=== PATIENT | female | born 1955 | race African-American/Black ===

== ENCOUNTER 2020-05-11 08:49 | Emergency (ER) | payer MEDICARE ==
[~2020-05-11] VITALS: Ht 167.6 cm; Wt 80.0 kg
--- NOTE | 2020-05-11 09:11 | ED.ADGEN ---
General Adult EDM: Chief Complaint: RIB PAIN HPI: HPI: Patient is a 65 year old female coming in for pain on her right ribs. Patient states is worse with movement and palpation, not able to lay on her right side. Fall happened a week ago she fell into an antique trunk and hit the corner on her ribs. Denies any head injury loss consciousness. Denies any changes in urination or blood in her urine. Patient has been taking [id number] medications for pain. Does not have a primary care provider and denies any known medical history. Denies any recent illness, cough fevers, vomiting, diarrhea. Review of Systems: Review of Systems: Negative except for HPI Current Medications: Current Medications Medications (Trade) Dose Ordered Sig/Sera Start Time Stop Time Status Last Admin Dose Admin Fentanyl Citrate (Fentanyl 2ml Vial) 75 mcg 1X ONCE 05/11/20 09:30 05/11/20 09:31 DC 05/11/20 10:06 75 MCG Info (CONTRAST GIVEN -- Rx MONITORING) 1 each PRN DAILY PRN 05/11/20 10:30 05/13/20 10:29 Iohexol (Omnipaque 300 Mg/ml) 75 ml 1X ONCE 05/11/20 10:45 05/11/20 10:46 DC 05/11/20 10:44 75 ML Rivaroxaban (Xarelto) 15 mg 1X STAT 05/11/20 12:29 05/11/20 12:33 DC 05/11/20 12:48 15 MG Allergies: Allergies: Allergies Coded Allergies Type Severity Reaction Last Updated Verified Penicillins Allergy Intermediate 05/11/20 Yes Sulfa (Sulfonamide Antibiotics) Allergy Intermediate 05/11/20 Yes Physical Exam: PE: Constitutional: Well developed, well nourished, no acute distress, non-toxic appearance. [] HENT: Normocephalic, atraumatic, bilateral external ears normal, oropharynx moist, no oral exudates, nose normal. [] Eyes: PERRLA, EOMI, conjunctiva normal, no discharge. [] Neck: Normal range of motion, no tenderness, supple, no stridor. [] Cardiovascular:Heart rate regular rhythm, no murmur [] right lateral chest tenderness, no deformities or crepitus Lungs & Thorax: Bilateral breath sounds clear to auscultation [] Abdomen: Bowel sounds normal, soft, no tenderness, no masses, no pulsatile masses. [] Skin: Warm, dry, no erythema, no rash. [] Back: No tenderness, no CVA tenderness. [] Extremities: No tenderness, no cyanosis, no clubbing, ROM intact, no edema. [] Neurologic: Alert and oriented X 3, normal motor function, normal sensory function, no focal deficits noted. [] Psychologic: Affect normal, judgement normal, mood normal. [] Current Patient Data: Labs: Laboratory Tests Test 05/11/20 09:54 05/11/20 10:00 White Blood Count 3.4 x10^3/uL (4.0-11.0) L Red Blood Count 4.22 x10^6/uL (3.50-5.40) Hemoglobin 10.9 g/dL (12.0-15.5) L Hematocrit 32.4 % (36.0-47.0) L Mean Corpuscular Volume 77 fL (79-100) L Mean Corpuscular Hemoglobin 26 pg (25-35) Mean Corpuscular Hemoglobin Concent 34 g/dL (31-37) Red Cell Distribution Width 17.9 % (11.5-14.5) H Platelet Count 333 x10^3/uL (140-400) Neutrophils (%) (Auto) 57 % (31-73) Lymphocytes (%) (Auto) 26 % (24-48) Monocytes (%) (Auto) 13 % (0-9) H Eosinophils (%) (Auto) 2 % (0-3) Basophils (%) (Auto) 1 % (0-3) Neutrophils # (Auto) 2.0 x10^3/uL (1.8-7.7) Lymphocytes # (Auto) 0.9 x10^3/uL (1.0-4.8) L Monocytes # (Auto) 0.5 x10^3/uL (0.0-1.1) Eosinophils # (Auto) 0.1 x10^3/uL (0.0-0.7) Basophils # (Auto) 0.0 x10^3/uL (0.0-0.2) Sodium Level 137 mmol/L (136-145) Potassium Level 4.0 mmol/L (3.5-5.1) Chloride Level 103 mmol/L (98-107) Carbon Dioxide Level 25 mmol/L (21-32) Anion Gap 9 (6-14) Blood Urea Nitrogen 8 mg/dL (7-20) Creatinine 1.1 mg/dL (0.6-1.0) H Estimated GFR (Cockcroft-Gault) 59.9 BUN/Creatinine Ratio 7 (6-20) Glucose Level 91 mg/dL (70-99) Calcium Level 9.6 mg/dL (8.5-10.1) Total Bilirubin 0.2 mg/dL (0.2-1.0) Aspartate Amino Transferase (AST) 15 U/L (15-37) Alanine Aminotransferase (ALT) 12 U/L (14-59) L Alkaline Phosphatase 102 U/L (46-116) Total Protein 7.2 g/dL (6.4-8.2) Albumin 3.2 g/dL (3.4-5.0) L Albumin/Globulin Ratio 0.8 (1.0-1.7) L Urine Collection Type Unknown Urine Color Yellow Urine Clarity Clear Urine pH 5.0 (<5.0-8.0) Urine Specific [place] 1.015 (1.000-1.030) Urine Protein Negative mg/dL (NEG-TRACE) Urine Glucose (UA) Negative mg/dL (NEG) Urine Ketones (Stick) Negative mg/dL (NEG) Urine Blood Negative (NEG) Urine Nitrite Negative (NEG) Urine Bilirubin Negative (NEG) Urine Urobilinogen Dipstick 0.2 mg/dL (0.2 mg/dL) Urine Leukocyte Esterase Negative (NEG) Urine RBC 0 /HPF (0-2) Urine WBC 0 /HPF (0-4) Urine Squamous Epithelial Cells Few /LPF Urine Bacteria 0 /HPF (0-FEW) Urine Mucus Slight /LPF Laboratory Tests 05/11/20 09:54 Laboratory Tests 05/11/20 09:54 Vital Signs: Vital Signs Date Time Temp Pulse Resp B/P (MAP) Pulse Ox O2 Delivery O2 Flow Rate FiO2 05/11/20 12:35 60 16 98 05/11/20 10:06 Room Air 05/11/20 09:00 98.7 138/76 (96) 98.7 EKG: EKG: [] Heart Score: Risk Factors: Risk Factors: DM, Current or recent (<one month) smoker, HTN, HLP, family history of CAD, obesity. Risk Scores: Score 0 - 3: 2.5% MACE over next 6 weeks - Discharge Home Score 4 - 6: 20.3% MACE over next 6 weeks - Admit for Clinical Observation Score 7 - 10: 72.7% MACE over next 6 weeks - Early Invasive Strategies Radiology/Procedures: Radiology/Procedures: CT chest abdomen and pelvis with contrast: History: Pain after fall Axial helical images of the chest abdomen and pelvis were obtained after the administration of 75 cc IV Omni 300 contrast. The patient vomited during the examination resulting in motion artifact Comparison: none CT OF THE CHEST WITH IV CONTRAST: There is thrombus in the right lower lobe pulmonary artery interdigitating into multiple subsegmental pulmonary arteries. There could be a few small peripheral pulmonary emboli on the left. There is no central embolism. There is a small right pleural effusion and there is patchy opacity in the right lower lobe. There is no mediastinal lymphadenopathy or hematoma. Lymphadenopathy: no Thoracic aorta: normal Impression: 1. Right-sided pulmonary embolus with mild clot burden. 2. Small right effusion and right lower lobe infiltrate suggesting pulmonary infarct with hemothorax. End Impression [] Course & Med Decision Making: Course & Med Decision Making Pertinent Labs and Imaging studies reviewed. (See chart for details) Patient states she is medicaid able to get medications filled. Given 1st dose of rivaroxaban emergency department. Discussed return precautions if patient feels worse or is unable to get her medications filled. [] Ryan Disclaimer: Ryan Disclaimer: This electronic medical record was generated, in whole or in part, using a voice recognition dictation system. Departure Departure Impression: Primary Impression: Pulmonary embolism Disposition: 01 DC HOME SELF CARE/HOMELESS Condition: STABLE Patient Instructions: Pulmonary Embolus Additional Instructions: Take 15 mg twice a day for 3 weeks, fill second prescription and take 20 mg once daily until refills of been completed Scripts Rivaroxaban (XARELTO) 20 Mg Tablet 1 TAB PO DAILY for 30 Days, #30 TAB 4 Refills with food Prov: SARAH DELAROSA MD 05/11/20 Rivaroxaban (XARELTO) 15 Mg Tablet 1 TAB PO BID for blood clot for 21 Days, #42 TAB 0 Refills Prov: SARAH DELAROSA MD 05/11/20 Hydrocodone/Apap 5-325 (NORCO 5-325 TABLET) 1 Each Tablet 1 TAB PO PRN Q6HRS PRN for PAIN for 5 Days, #15 TAB 0 Refills Prov: SARAH DELAROSA MD 05/11/20 SARAH DELAROSA MD May 11, 2020 09:11
[2020-05-11] MEDS ORDERED: fentaNYL PF VIAL 100 MCG/2 ML VIAL IVP ONE (09:30)
[2020-05-11 10:27] LABS: BASO % 1 % (0-3); CALCIUM 9.6 mg/dL (8.5-10.1); CREATININE 1.1 mg/dL (0.6-1.0); EOS # 0.1 x10^3/uL (0.0-0.7); EOS % 2 % (0-3); GFR 59.9; HEMATOCRIT 32.4 % (36.0-47.0); HEMOGLOBIN 10.9 g/dL (12.0-15.5); LYMPH # 0.9 x10^3/uL (1.0-4.8); LYMPH % 26 % (24-48); MEAN CORPUSCULAR HEMOGLOBIN 26 pg (25-35); MEAN CORPUSCULAR HGB CONC 34 g/dL (31-37); MEAN CORPUSCULAR VOLUME 77 fL (79-100); MONO # 0.5 x10^3/uL (0.0-1.1); MONO % 13 % (0-9); NEUT % 57 % (31-73); PLATELET COUNT 333 x10^3/uL (140-400); RED BLOOD COUNT 4.22 x10^6/uL (3.50-5.40); RED CELL DISTRIBUTION WIDTH 17.9 % (11.5-14.5); WHITE BLOOD COUNT 3.4 x10^3/uL (4.0-11.0)
[2020-05-11] MEDS ORDERED: CONTRAST GIVEN. MC PRN (10:30)
[2020-05-11 10:33] LABS: ALBUMIN 3.2 g/dL (3.4-5.0); ALBUMIN/GLOBULIN RATIO 0.8 (1.0-1.7); TOTAL BILIRUBIN 0.2 mg/dL (0.2-1.0); TOTAL PROTEIN 7.2 g/dL (6.4-8.2)
[2020-05-11] MEDS ORDERED: IOHEXOL 300 MG/ML 100ML VIAL. IV ONE (10:45)
--- NOTE | 2020-05-11 11:15 | RAD ---
CT chest abdomen and pelvis with contrast: History: Pain after fall Axial helical images of the chest abdomen and pelvis were obtained after the administration of 75 cc IV Omni 300 contrast. The patient vomited during the examination resulting in motion artifact Comparison: none CT OF THE CHEST WITH IV CONTRAST: There is thrombus in the right lower lobe pulmonary artery interdigitating into multiple subsegmental pulmonary arteries. There could be a few small peripheral pulmonary emboli on the left. There is no central embolism. There is a small right pleural effusion and there is patchy opacity in the right lower lobe. There is no mediastinal lymphadenopathy or hematoma. Lymphadenopathy: no Thoracic aorta: normal Impression: 1. Right-sided pulmonary embolus with mild clot burden. 2. Small right effusion and right lower lobe infiltrate suggesting pulmonary infarct with hemothorax. End Impression CT OF THE ABDOMEN AND PELVIS WITH IV CONTRAST: There is mild hiatal hernia. There is motion artifact due to vomiting. Liver: Unremarkable Spleen: Unremarkable Pancreas: Unremarkable Adrenal Glands: Unremarkable Kidneys: Unremarkable Evaluation of stomach and bowel is limited without oral contrast. Lymphadenopathy: no. Free fluid: no. Free air: no. The bladder appears normal without extravasation of contrast. Impression: 1. Vomiting during the examination suggesting an atypical allergic reaction to iodinated contrast. 2. See CT chest with contrast. No acute findings identified in the abdomen or pelvis. End impression PQRS Compliance Statement: One or more of the following individualized dose reduction techniques were utilized for this examination: 1. Automated exposure control 2. Adjustment of the mA and/or kV according to patient size 3. Use of iterative reconstruction technique Electronically signed by: Tomi Garcia III, MD (05/11/2020 11:11 AM) [facility]
[2020-05-11 11:20] LABS: BILIRUBIN,URINE NEGATIVE (NEG); CLARITY,URINE CLEAR; COLOR,URINE YELLOW; NITRITE,URINE NEGATIVE (NEG); PROTEIN,URINE NEGATIVE (NEG-TRACE); UROBILINOGEN,URINE 0.2 mg/dL (0.2 mg/dL)
[2020-05-11 11:25] LABS: BACTERIA,URINE 0 /HPF (0-FEW); RBC,URINE 0 /HPF (0-2); WBC,URINE 0 /HPF (0-4)
[2020-05-11] MEDS ORDERED: RIVA20TA2 PO (12:28)
[2020-05-11] MEDS ORDERED: RIVA15TA PO (12:28)
[2020-05-11] MEDS ORDERED: HYDR-3164 PO (12:28)
[2020-05-11] MEDS ORDERED: RIVAROXABAN 15 MG TABLET. PO STA (12:29)
[2020-05-11 12:35] VITALS: BP 121/55
== END 2020-05-11 12:56 | disposition home or self-care (01) ==
LOC: ER 08:49
DX: I26.99 Other pulmonary embolism without acute cor pulmonale (principal); R91.8 Other nonspecific abnormal finding of lung field; R07.81 Pleurodynia; Z88.0 Allergy status to penicillin; Z88.2 Allergy status to sulfonamides; W18.09XA Striking against other object with subsequent fall, initial encounter; Y93.89 Activity, other specified; Y92.89 Other specified places as the place of occurrence of the external cause; Y99.8 Other external cause status
CPT/HCPCS: 36415; 71260; 74177; 80053; 81001; 85025; 96374; 99285; J3010; Q9967